=== PATIENT | female | born 1935 | race Caucasian/White ===

== ENCOUNTER 2017-12-26 10:10 | Outpatient (CLI) | payer MEDICARE ==
--- NOTE | 2017-12-26 17:44 | ULT ---
BILATERAL RENAL ULTRASOUND: 12/26/17 Ultrasonography of urinary tract was performed. The right kidney measures 9.2 x 3.4 x 3.8 cm. It cont ains a 1.6 cm cyst. While the cyst is not seen optimally, it more than likely is just a simple cyst. The left kidney measures 8.8 x 4.3 x 4.0 cm. No solid mass, hydronephrosis or cortical thinning was s een in either kidney. There are no abnormalities seen in the urinary bladder. The wall thickness was 5 mm which is slightly more than usual, but it is not fully distended, so this finding is suspect. IMPRESSION: 1.6 cm right renal cyst. No sign of obstruction. POS: HOME
[2017-12-26 18:10] LABS: Hemoglobin 11.1 g/dL (12.0-16.0)
[2017-12-26 18:15] LABS: Anion Gap 14 mmol/L (10-20); BUN (Urea Nitrogen) 37 mg/dL (9.8-20.1); Calc. Creatinine Clearance 0 mL/min (70-130); Calcium 9.1 mg/dL (7.8-10.44); Carbon Dioxide 22 mmol/L (23-31); Chloride 107 mmol/L (98-107); Estimated GFR-MDRD 28; Glucose 169 mg/dL (83-110); Phosphorus 3.9 mg/dL (2.3-4.7); Potassium 3.6 mmol/L (3.5-5.1); Sodium 139 mmol/L (136-145)
[2017-12-26 18:33] LABS: Creatinine, Urine 167.55 mg/dL (47-110)
== END 2017-12-26 10:11 | disposition home or self-care (01) ==
LOC: BURULT 10:10
PROVIDERS: ATTEND Internal Medicine Nephrology
DX: I13.0 Hypertensive heart and chronic kidney disease with heart failure and stage 1 through stage 4 chronic kidney disease, or unspecified chronic kidney disease (principal); N18.4 Chronic kidney disease, stage 4 (severe); I50.9 Heart failure, unspecified; N28.1 Cyst of kidney, acquired
CPT/HCPCS: 36415; 76770; 80048; 82306; 82570; 83970; 84100; 84156; 85014; 85018